=== PATIENT | female | born 1935 | race African-American/Black ===

== ENCOUNTER 2022-04-14 16:55 | Emergency (ER) | payer MEDICARE, MEDICAID ==
[~2022-04-14] VITALS: Ht 177.8 cm; Wt 97.7 kg
[2022-04-14 17:36] LABS: BASO % 0.3 % (0.0-2.0); EOS # 0.1 K/mm3 (0.0-0.7); EOS % 0.4 % (0.0-4.0); GRAN # 10.9 K/mm3 (1.4-6.5); GRAN % 68.7 % (42.2-75.2); HEMATOCRIT 38.5 % (37.0-47.0); HEMOGLOBIN 12.3 g/dl (12.5-16.0); LYMPH # 3.7 K/mm3 (1.2-3.4); LYMPH % 22.9 % (20.0-51.0); MEAN CELL VOLUME 94 fl (80.0-100.0); MEAN CORPUSCULAR HEMOGLOBIN 30 pg (27-31); MEAN CORPUSCULAR HGB CONC 32 g/dl (33.0-37.0); MEAN PLATELET VOLUME 9.9 fl (7.4-10.4); MONO # 1.1 K/mm3 (0.1-0.6); MONO % 6.8 % (1.7-9.3); PLATELET COUNT 440 K/mm3 (130-400); RED BLOOD COUNT 4.11 M/mm3 (4.10-5.30); REDCELL DISTRIBUTION WIDTH-CV 14.5 % (11.5-14.5)
[2022-04-14 17:54] LABS: BILIRUBIN,TOTAL 0.5 mg/dL (0.2-1.2); CALCIUM 10.6 mg/dL (8.4-10.2); CREATININE, serum 2.08 mg/dL (0.57-1.11); MAGNESIUM 1.2 mg/dL (1.6-2.6); POTASSIUM 5.2 mmol/L (3.5-4.5); TOTAL PROTEIN 8.2 gm/dL (6.2-8.1)
[2022-04-14 19:44] LABS: PH 5 (5-8); SQUAMOUS EPITHELIAL None Seen /hpf (0-10); URINE APPEARANCE Hazy (CLEAR/HAZY); URINE BACTERIA Moderate /hpf (NONE SEEN); URINE BILIRUBIN Negative (NEGATIVE); URINE BLOOD Negative (NEGATIVE); URINE COLOR Yellow (YELLOW); URINE GLUCOSE Negative (NEGATIVE); URINE KETONE Negative (NEGATIVE); URINE LEUKOCYTE ESTERASE 2+ (NEGATIVE); URINE NITRATE Negative (NEGATIVE); URINE PROTEIN(semi-quant) Negative (NEGATIVE); URINE UROBILINOGEN Negative (NEGATIVE)
[2022-04-14] MEDS ORDERED: CEFTIN 250250 MG/TAB PO (19:58)
[2022-04-14] MEDS ORDERED: MAG-G500 MG PO (19:58)
[2022-04-14 21:00] VITALS: BP 121/52; PULSE 93; TEMP 99
[2022-04-15 11:45] LABS: COLLECTION METHOD CATHETER
[2022-04-16] MEDS ORDERED: LEVAQUIN 5500 MG/TA1 PO (08:13)
== END 2022-04-14 21:00 | disposition home or self-care (01) ==
LOC: COL.ER 16:55
PROVIDERS: Physician Assistant
DX: N39.0 Urinary tract infection, site not specified (principal); E83.42 Hypomagnesemia; Z87.891 Personal history of nicotine dependence; Z86.16 Personal history of COVID-19
CPT/HCPCS: J0696; J7030

== ENCOUNTER 2022-05-02 12:21 | Emergency (ER) | payer MEDICARE, MEDICAID ==
[~2022-05-02] VITALS: Ht 180.3 cm; Wt 105.5 kg
[~2022-05-02 12:21] MED LIST: CEFTIN 250250 MG/TAB PO; LEVAQUIN 5500 MG/TA1 PO; MAG-G500 MG PO
[2022-05-02 12:38] VITALS: TEMP 97.9
[2022-05-02 13:24] LABS: BASO % 0.3 % (0.0-2.0); EOS # 0.2 K/mm3 (0.0-0.7); EOS % 1.9 % (0.0-4.0); GRAN # 6.9 K/mm3 (1.4-6.5); GRAN % 61.2 % (42.2-75.2); HEMOGLOBIN 12.1 g/dl (12.5-16.0); LYMPH # 3.3 K/mm3 (1.2-3.4); LYMPH % 29.2 % (20.0-51.0); MEAN CELL VOLUME 93 fl (80.0-100.0); MEAN CORPUSCULAR HEMOGLOBIN 30 pg (27-31); MEAN CORPUSCULAR HGB CONC 32 g/dl (33.0-37.0); MEAN PLATELET VOLUME 9.9 fl (7.4-10.4); MONO # 0.8 K/mm3 (0.1-0.6); PLATELET COUNT 372 K/mm3 (130-400); REDCELL DISTRIBUTION WIDTH-CV 14.5 % (11.5-14.5)
[2022-05-02 13:44] LABS: ALBUMIN 2.9 gm/dL (3.4-4.8); BILIRUBIN,TOTAL 0.4 mg/dL (0.2-1.2); CALCIUM 9.9 mg/dL (8.4-10.2); CREATININE, serum 0.77 mg/dL (0.57-1.11); POTASSIUM 4.1 mmol/L (3.5-4.5); TOTAL PROTEIN 7.2 gm/dL (6.2-8.1)
[2022-05-02 14:18] LABS: COLLECTION METHOD CATHETER
[2022-05-02 14:25] LABS: PH 7 (5-8); SQUAMOUS EPITHELIAL 0-2 /hpf (0-10); URINE APPEARANCE Clear (CLEAR/HAZY); URINE BACTERIA None Seen /hpf (NONE SEEN); URINE BLOOD Negative (NEGATIVE); URINE COLOR Straw (YELLOW); URINE GLUCOSE Negative (NEGATIVE); URINE KETONE Negative (NEGATIVE); URINE NITRATE Negative (NEGATIVE); URINE PROTEIN(semi-quant) Negative (NEGATIVE); URINE RBC 0-2 /hpf (0-2); URINE UROBILINOGEN Negative (NEGATIVE)
[2022-05-02] MEDS ORDERED: PREDNISONE20 MG PO (14:38)
[2022-05-02] MEDS ORDERED: ZOFRAN ODT4 MG PO (14:38)
[2022-05-02 14:49] VITALS: BP 121/51; PULSE 75
== END 2022-05-02 14:52 | disposition home or self-care (01) ==
LOC: COL.ER 12:21
PROVIDERS: Personal Emergency Response Attendant
DX: T78.40XA Allergy, unspecified, initial encounter (principal); R11.2 Nausea with vomiting, unspecified; Z86.16 Personal history of COVID-19; Z87.891 Personal history of nicotine dependence
CPT/HCPCS: J2405; J2930; J7030

== ENCOUNTER → 2022-05-31 | Outpatient (CLI) | payer MEDICARE, MEDICAID ==
[~2022-05-31] MED LIST changes: +PREDNISONE20 MG PO; +ZOFRAN ODT4 MG PO
== END ==
LOC: COL.RAD 13:11
DX: N18.32 Chronic kidney disease, stage 3b (principal)

== ENCOUNTER 2022-12-03 16:41 | Emergency (ER) | payer MEDICARE, MEDICAID ==
[~2022-12-03] VITALS: Ht 177.8 cm; Wt 88.7 kg
[2022-12-03 16:43] VITALS: TEMP 97.9
[2022-12-03 17:27] LABS: COLLECTION METHOD CATHETER
[2022-12-03 17:36] LABS: URINE APPEARANCE Clear (CLEAR/HAZY); URINE COLOR Yellow (YELLOW)
[2022-12-03 17:37] LABS: PH 6.5 (5.0-8.5); URINE BLOOD TRACE-INTACT (NEGATIVE); URINE GLUCOSE Negative (NEGATIVE); URINE KETONE Negative (NEGATIVE); URINE NITRATE Positive (NEGATIVE); URINE PROTEIN(semi-quant) Negative (NEGATIVE); URINE UROBILINOGEN 0.2 E.U/dL (0.2-1.0)
[2022-12-03 17:39] LABS: SQUAMOUS EPITHELIAL 0-2 /hpf (0-10); URINE BACTERIA Moderate /hpf (NONE SEEN)
[2022-12-03 18:10] VITALS: BP 115/60; PULSE 72
== END 2022-12-03 18:39 | disposition home or self-care (01) ==
LOC: COL.ER 16:41
PROVIDERS: Emergency Medicine
DX: A48.8 Other specified bacterial diseases (principal)
CPT/HCPCS: J2543

== ENCOUNTER → 2022-12-24 | Outpatient (CLI) | payer MEDICARE, MEDICAID ==
[2022-12-24 15:55] LABS: BASO # 0.1 K/mm3 (0.0-0.2); BASO % 0.6 % (0.0-2.0); EOS # 0.2 K/mm3 (0.0-0.7); EOS % 2.5 % (0.0-4.0); GRAN # 4.1 K/mm3 (1.4-6.5); GRAN % 51.4 % (42.2-75.2); HEMATOCRIT 39.1 % (37.0-47.0); HEMOGLOBIN 12.2 g/dl (12.5-16.0); LYMPH # 3.1 K/mm3 (1.2-3.4); LYMPH % 39.2 % (20.0-51.0); MEAN CELL VOLUME 97 fl (80.0-100.0); MEAN CORPUSCULAR HEMOGLOBIN 30 pg (27-31); MEAN CORPUSCULAR HGB CONC 31 g/dl (33.0-37.0); MEAN PLATELET VOLUME 11.3 fl (7.4-10.4); MONO # 0.5 K/mm3 (0.1-0.6); MONO % 5.9 % (1.7-9.3); PLATELET COUNT 340 K/mm3 (130-400); RED BLOOD COUNT 4.04 M/mm3 (4.10-5.30); REDCELL DISTRIBUTION WIDTH-CV 14.5 % (11.5-14.5)
[2022-12-24 16:12] LABS: CALCIUM 9.4 mg/dL (8.4-10.2); CREATININE, serum 0.98 mg/dL (0.57-1.11); POTASSIUM 4.4 mmol/L (3.5-4.5)
== END ==
LOC: ZCOL.LAB 15:36
PROVIDERS: Internal Medicine
DX: E03.9 Hypothyroidism, unspecified (principal); I48.0 Paroxysmal atrial fibrillation; E78.5 Hyperlipidemia, unspecified; E11.40 Type 2 diabetes mellitus with diabetic neuropathy, unspecified

== ENCOUNTER → 2023-06-23 | Outpatient (CLI) | payer MEDICAID | LOC: COL.PUL 08:50 | DX: R06.02 Shortness of breath (principal) ==

== ENCOUNTER → 2023-09-08 | Outpatient (CLI) | payer MEDICAID ==
[2023-09-08 14:57] LABS: COLLECTION METHOD CLEAN CATCH
[2023-09-08 15:30] LABS: PH > 9.0 (5.0-8.5); URINE APPEARANCE Hazy (CLEAR/HAZY); URINE COLOR Yellow (YELLOW); URINE GLUCOSE Negative (NEGATIVE); URINE PROTEIN(semi-quant) 1+ (NEGATIVE)
[2023-09-08 15:31] LABS: SQUAMOUS EPITHELIAL 0-2 /hpf (0-10); URINE BACTERIA Many /hpf (NONE SEEN); URINE BLOOD TRACE-INTACT (NEGATIVE); URINE KETONE Negative (NEGATIVE); URINE NITRATE Negative (NEGATIVE); URINE TRIPLE PHOSPHATE CRYSTAL Present (NOT PRESENT); URINE UROBILINOGEN 0.2 E.U/dL (0.2-1.0); URINE WBC 20-50 /hpf (0-2)
== END ==
LOC: ZCOL.LAB 14:55
PROVIDERS: Internal Medicine
DX: N39.0 Urinary tract infection, site not specified (principal)

== ENCOUNTER → 2023-09-20 | Outpatient (CLI) | payer MEDICAID | LOC: ZCOL.LAB 11:22 | DX: Z01.89 Encounter for other specified special examinations (principal) ==

== ENCOUNTER → 2023-11-09 | Outpatient (CLI) | payer MEDICARE, MEDICAID | LOC: COL.RAD 08:10 | DX: R91.8 Other nonspecific abnormal finding of lung field (principal); I07.1 Rheumatic tricuspid insufficiency; M19.011 Primary osteoarthritis, right shoulder; M19.012 Primary osteoarthritis, left shoulder ==

== ENCOUNTER → 2024-04-23 | Outpatient (REF) | payer MEDICARE, MEDICAID ==
[~2024-04-23] MED LIST changes: +ALLEGRA 180MG180 MG PO; +ATARAX 25MG25 MG/TAB PO; +ATHLETE'S FOOT1% TP; +ATROVENT I0.2 MG/1 M IH; +B-12 500 MCG PO; +BENADRYL25 M2 PO; +CALCIUM-500 5001 CTB PO; +CARDIZEM120 MG PO; +CRANBERRY450 MG PO; +DIPROLENE AF GEL15GM TP; +DULCOLAX S10 MG/SUPP RC; +DULCOLAX TAB5 MG PO; +ELIQUIS 5MG PO; +EUCERIN1 CRE TOP; +FERRO-TIME325 MG PO; +FLONASE SENSIM9.9 ML NS; +GAS RELIEF 8080 MG PO; +GLUCOPHAGE500 MG/TAB PO; +LASIX 40MG TABL40 MG PO; +LYRICA 25MG CAP25 MG PO; +MAG-OX 400400 MG/TAB PO; +MELATIN 3 MG-11 TAB PO; +MIRALAX PA17 GM/Dose PO; +MUCINEX 60600 MG/TA1 PO; +ROBITUSSIN100 MG/5 M PO; +SENNA-LAX8.6 MG PO; +THERAFLU EXPRE1 EAC1 PO; +TIROSINT137 MC1 PO; +TRELEGY ELLIPT1 EACH IH; +TYLENOL 500MG500 MG PO; +VITAMINC1000TA PO; +XALATAN EYE DROPS OU; +ZOFRAN 4MG T4 MG/TAB PO; +ZYLOPRIM 100MG100 MG PO
[2024-04-23 07:27] LABS: COLLECTION METHOD CLEAN CATCH
[2024-04-23 08:03] LABS: URINE APPEARANCE TURBID (CLEAR/HAZY); URINE BLOOD NEGATIVE (NEGATIVE); URINE COLOR YELLOW (YELLOW); URINE GLUCOSE NEGATIVE (NEGATIVE); URINE KETONE TRACE (NEGATIVE); URINE NITRATE NEGATIVE (NEGATIVE); URINE PROTEIN(semi-quant) TRACE (NEGATIVE); URINE UROBILINOGEN 0.2 E.U/dL (0.2-1.0)
[2024-04-23 08:18] LABS: SQUAMOUS EPITHELIAL >50 /hpf (0-10); URINE BACTERIA MANY /hpf (NONE SEEN); URINE RBC 0-2 /hpf (0-2); URINE WBC 20-50 /hpf (0-2)
== END ==
LOC: ZCOL.LAB 06:56
PROVIDERS: Internal Medicine
DX: N39.0 Urinary tract infection, site not specified (principal)

== ENCOUNTER → 2024-04-27 | Outpatient (CLI) | payer MEDICARE, MEDICAID ==
[~2024-04-27] MED LIST changes: +CEFTIN500 MG PO; +SYNTHROID0.112 MG/T PO
[2024-04-27 14:26] LABS: CALCIUM 10.7 mg/dL (8.4-10.2); CREATININE, serum 3.74 mg/dL (0.57-1.11); POTASSIUM 5.2 mEq/L (3.5-4.5)
== END ==
LOC: COL.LAB 13:38
PROVIDERS: Internal Medicine
DX: E78.5 Hyperlipidemia, unspecified (principal); E11.42 Type 2 diabetes mellitus with diabetic polyneuropathy